=== PATIENT | male | born 1965 | race Caucasian/White ===

== ENCOUNTER 2019-03-22 23:03 | Emergency (ER) | payer BC ==
[~2019-03-22] VITALS: Ht 167.6 cm; Wt 73.7 kg
[2019-03-22 23:06] VITALS: Ht 167.6 cm; Wt 73.7 kg
[2019-03-23 02:12] VITALS: BP 128/65
== END 2019-03-23 02:12 | disposition home or self-care (01) ==
LOC: ED 23:03
DX: J06.9 Acute upper respiratory infection, unspecified (principal); T18.8XXA Foreign body in other parts of alimentary tract, initial encounter; W45.8XXA Other foreign body or object entering through skin, initial encounter; Y93.89 Activity, other specified; Y92.89 Other specified places as the place of occurrence of the external cause; Y99.8 Other external cause status
CPT/HCPCS: 87804; J1100